=== PATIENT | female | born 1975 | race Caucasian/White ===

== ENCOUNTER 2017-01-04 08:33 | Emergency (ER) | payer BC, OTHER ==
[~2017-01-04] VITALS: Ht 165.1 cm; Wt 81.5 kg
[~2017-01-04 08:33] MED LIST: CIPR500T4 PO; NAPR-688 PO; ONDA4TAB35 PO
[2017-01-04 08:35] VITALS: Ht 165.1 cm; Wt 81.5 kg
[2017-01-04] MEDS ORDERED: FAMOTIDINE 20 MG INJ IV STA (09:11)
[2017-01-04] MEDS ORDERED: LIDOCAINE/MYLANTA 40 ML BTL PO STA (09:11)
[2017-01-04 09:48] LABS: ADD SCAN DIFF NO
[2017-01-04 09:56] LABS: BASOPHILS % 0.5 % (0.0-2.0); EOSINOPHILS # 0.1 10^3/ul (0.0-0.5); EOSINOPHILS % 2.5 % (0.0-7.0); HEMATOCRIT 35.8 % (37.0-47.0); HEMOGLOBIN 12.1 g/dl (12.0-16.0); LYMPHOCYTES # 1.7 10^3/ul (0.8-2.9); LYMPHOCYTES % 30.4 % (15.0-51.0); MEAN CORPUSCULAR HEMOGLOBIN 28.8 pg (29.0-33.0); MEAN CORPUSCULAR HGB CONC 33.8 g/dl (32.0-37.0); MEAN CORPUSCULAR VOLUME 85.2 fl (82.0-101.0); MEAN PLATELET VOLUME 10.5 fl (7.4-10.4); MONOCYTE # 0.5 10^3/ul (0.3-0.9); MONOCYTES % 8.9 % (0.0-11.0); NEUTROPHIL # 3.2 10^3/ul (1.6-7.5); NEUTROPHILS % 57.5 % (39.0-77.0); PLATELET COUNT 321 10^3/UL (140-415); RED CELL DISTRIBUTION WIDTH 12.9 % (11.5-14.5); WHITE BLOOD COUNT 5.6 10^3/ul (4.8-10.8)
--- NOTE | 2017-01-04 09:56 | RADRPT ---
PROCEDURE: CT Abdomen and Pelvis without contrast. CLINICAL INDICATION: Abdominal pain TECHNIQUE: CT scan of the abdomen and pelvis without contrast was performed. The patient was scann ed without intravenous contrast. Coronal and sagittal reformatted images were obtained from the axi al source images. Use of iterative reconstruction technique was employed. Images were reviewed on a high-resolution PACS workstation. images. The calculated radiation dose measures 1012.93 mGy centime ters. The CTDI measures 17.79 mGy. One or more of the following dose reduction techniques were used: - Automated exposure control. - Adjustment of the mA and/or kV according to patient size . - Use of iterative reconstruction technique. Images were reviewed on a high-resolution PACS workstation COMPARISON: Correlation with prior ultrasound from 12/03/2015 FINDINGS: CT abdomen: The lung bases are clear. The heart size is normal, without pericardial thickening or effusion. Th e liver is normal in size and density without focal mass or intrahepatic biliary dilatation. The sp leonardo is normal in size and homogeneous in density. The stomach is partially collapsed, but is gross ly unremarkable. The pancreas as visualized is normal. The gallbladder is surgically absent. The biliary tree is otherwise unremarkable and there is no evidence for biliary dilatation. The adrena l glands are symmetric and normal. The kidneys are symmetrically unremarkable as well. No renal ca lculus or obstructive uropathy or mass lesion is seen. The aorta is of normal caliber. There is no retroperitoneal lymphadenopathy. The joel hepatis reg ion is clear. The bowel and mesentery, as visualized, are equally unremarkable. CT pelvis: The small bowel loops situated within the pelvis are unremarkable. The pelvic organs are normal. T he pelvic sidewalls and inguinal regions are clear. The sigmoid colon and rectum are intact. A nor mal appendix is identified. No mass, lymphadenopathy, or free fluid is seen. No acute inflammation is seen. The surrounding osseous structures are remarkable for degenerative enthesopathy of the spine. No os teolytic or osteoblastic lesion is detected. IMPRESSION: 1. Status post cholecystectomy. 2. No acute inflammatory process identified within the abdomen or pelvis on this noncontrast examin ation. 3. Normal unenhanced appearance of the appendix. 4. No evidence for nephroureterolithiasis. RPTAT: AA .Dilip Worthy MD, MD Date Time Electronically viewed and signed by .Dilip Worthy MD, MD on 01/04/2017 09:56 .d/
[2017-01-04 10:01] LABS: ADD UMIC NO; UR ASCORBIC ACID NEGATIVE (NEGATIVE); UR BACTERIA FEW /HPF (NONE SEEN); UR BILIRUBIN (Dip) NEGATIVE (NEGATIVE); UR BLOOD (Dip) NEGATIVE (NEGATIVE); UR CLARITY SLIGHTLY CLOUDY (CLEAR); UR COLOR YELLOW (YELLOW); UR GLUCOSE (Dip) NEGATIVE (NEGATIVE); UR KETONES (Dip) NEGATIVE (NEGATIVE); UR LEUKOCYTE ESTERASE (Dip) NEGATIVE Leu/ul (NEGATIVE); UR NITRITE (Dip) NEGATIVE (NEGATIVE); UR RBC 0 /HPF (0-5); UR SPECIFIC GRAVITY (Dip) 1.016 (1.003-1.030); UR SQUAMOUS EPITHELIAL CELL FEW /HPF (FEW); UR TOTAL PROTEIN (Dip) NEGATIVE (NEGATIVE); UR UROBILINOGEN (Dip) NEGATIVE (NEGATIVE)
--- NOTE | 2017-01-04 10:08 | ERD ---
ER Documentation Chief Complaint Date/Time DATE: 01/04/17 TIME: 10:03 Chief Complaint abd swelling with intermittent pain x 3 weeks, rectal bleeding once x 1 wee HPI Patient is a 41-year-old female with past medical history of PUD, s/p cholecystectomy who presents to the emergency department with concerns of epigastric and RUQ 3 weeks. Patient does report abdominal distention and bloating. Patient states the pain is usually worse in the evenings. However today the pain was worse this morning which was concerning to her. Patient denies any fevers, chills or vomiting. Patient does report nausea. Patient does admit to history of constipation. She states she did have a bowel movement yesterday however it was hard. Patient states she has often has hard stools. Patient also reports blood in her stools. Patient states she notices blood with wiping on the toilet paper. Patient denies any previous history of hemorrhoids. Patient states she has had an endoscopy in the past however she denies having a colonoscopy. ROS All systems reviewed and are negative except as per history of present illness. Medications Home Meds Active Scripts Ondansetron (Ondansetron Odt) 4 Mg Tab.rapdis, 4 MG PO Q6H Y for NAUSEA AND/OR VOMITING, #10 TAB Prov:NICANOR HAYWOOD PA-C 01/04/17 Famotidine* (Pepcid*) 20 Mg Tablet, 20 MG PO BID for 30 Days, TAB Prov:NICANOR HAYWOOD PA-C 01/04/17 Ondansetron Hcl* (Zofran* ODT) 4 mg -ODT Tab.disper, 4 MG PO Q6 Y for NAUSEA AND /OR VOMITING, #10 TAB Prov:CYDNEY LYNN DO 12/03/15 Naproxen* (Naproxen*) 500 Mg Tablet, 500 MG PO BID, #20 TAB Prov:CYDNEY LYNN DO 12/03/15 Ciprofloxacin Hcl* (Ciprofloxacin Hcl*) 500 Mg Tablet, 500 MG PO BID for 14 Days , TAB Prov:CYDNEY LYNN DO 12/03/15 Allergies Allergies: Coded Allergies: No Known Allergy (Unverified , 01/04/17) PMhx/Soc History of Surgery: Yes (Tummy Tuck, Cholecystectomy, x2) Anesthesia Reaction: No Hx Neurological Disorder: No Hx Respiratory Disorders: No Hx Cardiac Disorders: No Hx Psychiatric Problems: No Hx Miscellaneous Medical Probl: Yes () Hx Alcohol Use: No Hx Substance Use: No Hx Tobacco Use: No Smoking Status: Never smoker Physical Exam Vitals Vital Signs Date Time Temp Pulse Resp B/P Pulse Ox O2 Delivery O2 Flow Rate FiO2 01/04/17 11:09 98.3 64 20 106/62 98 Room Air 01/04/17 08:35 98.4 75 18 104/62 98 Physical Exam GENERAL: Well-developed, well-nourished female. Appears in no acute distress. HEAD: Normocephalic, atraumatic. EYES: Pupils are equally reactive bilaterally. EOMs grossly intact. No conjunctival erythema. ENT: Moist mucous membranes. No uvula deviation. No kissing tonsils. NECK: Supple. No meningismus. Normal range of motion of the neck. LUNG: Clear to auscultation bilaterally. No rhonchi, wheezing, rales or coarse breath sounds. HEART: Regular rate and rhythm. No murmurs, rubs or gallops. ABDOMEN: Soft. Slightly distended. Tender to palpation in the epigastric region. Positive bowel sounds in all four quadrants. No rebound tenderness, no guarding. (-) McBurney's point tenderness. No CVA tenderness. BACK: No midline tenderness. EXTREMITIES: Equal pulses bilaterally. No peripheral clubbing, cyanosis or edema. No unilateral leg swelling. NEUROLOGIC: Alert and oriented. Moving all four extremities without any difficulty. Normal speech. Steady gait. SKIN: Normal color. Warm and dry. No rashes or lesions. Result Diagram: 01/04/1792901/04/17 0930 Results 24 hrs Laboratory Tests Test 01/04/17 09:25 01/04/17 09:30 Urine Color YELLOW Urine Clarity SLIGHTLY CLOUDY Urine pH 7.0 Urine Specific Spring 1.016 Urine Ketones NEGATIVEmg/dL Urine Nitrite NEGATIVEmg/dL Urine Bilirubin NEGATIVEmg/dL Urine Urobilinogen NEGATIVEmg/dL Urine Leukocyte Esterase NEGATIVELeu/ul Urine Microscopic RBC 0/HPF Urine Microscopic WBC 1/HPF Urine Squamous Epithelial Cells FEW/HPF Urine Bacteria FEW/HPF Urine Hemoglobin NEGATIVEmg/dL Urine Glucose NEGATIVEmg/dL Urine Total Protein NEGATIVEmg/dl White Blood Count 5.610^3/ul Red Blood Count 4.2010^6/ul Hemoglobin 12.1g/dl Hematocrit 35.8% Mean Corpuscular Volume 85.2fl Mean Corpuscular Hemoglobin 28.8pg Mean Corpuscular Hemoglobin Concent 33.8g/dl Red Cell Distribution Width 12.9% Platelet Count 02830^3/UL Mean Platelet Volume 10.5fl Neutrophils % 57.5% Lymphocytes % 30.4% Monocytes % 8.9% Eosinophils % 2.5% Basophils % 0.5% Nucleated Red Blood Cells % 0.0/100WBC Neutrophils # 3.210^3/ul Lymphocytes # 1.710^3/ul Monocytes # 0.510^3/ul Eosinophils # 0.110^3/ul Basophils # 0.010^3/ul Nucleated Red Blood Cells # 0.010^3/ul Sodium Level 135mmol/L Potassium Level 4.3mmol/L Chloride Level 107mmol/L Carbon Dioxide Level 21mmol/L Anion Gap 11 Blood Urea Nitrogen 10mg/dl Creatinine 0.72mg/dl Glucose Level 92mg/dl Calcium Level 9.3mg/dl Total Bilirubin 0.3mg/dl Direct Bilirubin 0.00mg/dl Indirect Bilirubin 0.3mg/dl Aspartate Amino Transf (AST/SGOT) 29IU/L Alanine Aminotransferase (ALT/SGPT) 30IU/L Alkaline Phosphatase 67IU/L Troponin I < 0.012ng/ml Total Protein 8.1g/dl Albumin 4.9g/dl Globulin 3.20g/dl Albumin/Globulin Ratio 1.53 Lipase 174U/L Current Medications Medications (Trade) Dose Ordered Sig/Tre Route PRN Reason Start Time Stop Time Status Last Admin Dose Admin Famotidine (Pepcid Iv) 20 mg ONCE STAT IV 01/04/17 09:11 01/04/17 09:14 DC 01/04/17 09:34 Miscellaneous Medication (Gi Cocktail (2)) 40 ml ONCE STAT PO 01/04/17 09:11 01/04/17 09:14 DC 01/04/17 09:34 Procedures/MDM ED COURSE: The patient was stable throughout ED course. I kept the patient and/or family informed of laboratory and diagnostic imaging results throughout the ED course. DIAGNOSTIC IMAGING: Read by radiologist. DIAGNOSTIC IMAGING REPORT Patient: SILVA ARRINGTON : 1975 Age: 41 Sex: F MR #: [id number] [facility] #: [id number] DOS: 01/04/17 0911 Ordering MD: NICANOR HAYWOOD PA-C [facility] Room/Bed: PROCEDURE: CT Abdomen and Pelvis without contrast. CLINICAL INDICATION: Abdominal pain TECHNIQUE: CT scan of the abdomen and pelvis without contrast was performed. The patient was scanned without intravenous contrast. Coronal and sagittal reformatted images were obtained from the axial source images. Use of iterative reconstruction technique was employed. Images were reviewed on a high- resolution PACS workstation. images. The calculated radiation dose measures 1012.93 mGy centimeters. The CTDI measures 17.79 mGy. One or more of the following dose reduction techniques were used: - Automated exposure control. - Adjustment of the mA and/or kV according to patient size . - Use of iterative reconstruction technique. Images were reviewed on a high-resolution PACS workstation COMPARISON: Correlation with prior ultrasound from 12/03/2015 FINDINGS: CT abdomen: The lung bases are clear. The heart size is normal, without pericardial thickening or effusion. The liver is normal in size and density without focal mass or intrahepatic biliary dilatation. The spleen is normal in size and homogeneous in density. The stomach is partially collapsed, but is grossly unremarkable. The pancreas as visualized is normal. The gallbladder is surgically absent. The biliary tree is otherwise unremarkable and there is no evidence for biliary dilatation. The adrenal glands are symmetric and normal. The kidneys are symmetrically unremarkable as well. No renal calculus or obstructive uropathy or mass lesion is seen. The aorta is of normal caliber. There is no retroperitoneal lymphadenopathy. The joel hepatis region is clear. The bowel and mesentery, as visualized, are equally unremarkable. CT pelvis: The small bowel loops situated within the pelvis are unremarkable. The pelvic organs are normal. The pelvic sidewalls and inguinal regions are clear. The sigmoid colon and rectum are intact. A normal appendix is identified. No mass , lymphadenopathy, or free fluid is seen. No acute inflammation is seen. The surrounding osseous structures are remarkable for degenerative enthesopathy of the spine. No osteolytic or osteoblastic lesion is detected. IMPRESSION: 1. Status post cholecystectomy. 2. No acute inflammatory process identified within the abdomen or pelvis on this noncontrast examination. 3. Normal unenhanced appearance of the appendix. 4. No evidence for nephroureterolithiasis. RPTAT: AA .Dilip Worthy MD, MD Date Time Electronically viewed and signed by .Dilip Worthy MD, MD on 01/04/2017 09:56 .d/ CC: NICANOR HAYWOOD PA-C PROCEDURES: None. MEDICATIONS GIVEN: GI cocktail, Pepcid IV Patient tolerated medication well with no adverse reactions. Patient reported improvement in pain. MEDICAL DECISION MAKING: This is a 41-year-old female who presents to the ED with epigastric pain and abdominal bloating. Vital signs were reviewed. Patient is afebrile. CBC showed no evidence of systemic infection or severe anemia. CMP showed no evidence of electrolyte abnormalities, severe acidosis, alkalosis, renal failure , or liver disease. Lipase showed no evidence of acute pancreatitis. Troponin was negative. UA showed no evidence of acute infection or hematuria. Low suspicion for UTI, pyelonephritis or nephrolithiasis. CT abdomen and pelvis without IV contrast showed no acute inflammatory processes within the abdomen or pelvis, no unenhanced appearance of the appendix, no evidence of nephroureterolithiasis. Patient was unable to provide a stool study to test for occult blood. At this time unable to rule out rectal bleeding source. Patient was given a GI cocktail and Pepcid IV here in the ED. She did report significant improvement in her symptoms. At this time, patient's presentation is most consistent with gastritis. Unable to rule out PUD vs. H pylori at this time. Low suspicion for acute coronary syndrome, lower lobe pneumonia, DKA, bowel perforation, , cholecystitis, choledocholithiasis, ascending cholangitis, hepatic abscess, pancreatitis, splenic rupture, diverticulitis, UTI, pyelonephritis, nephrolithiasis, appendicitis, . PRESCRIPTIONS: Pepcid DISCHARGE: At this time, patient is stable for discharge and outpatient management. Patient was given a copy of all imaging and blood work obtained today. Patient was advised to follow-up with a GI specialist for further workup and management of her symptoms including endoscopy, colonoscopy and H. pylori testing. I have instructed the patient to follow-up with his/her primary care physician in 1-2 days. I have instructed the patient to promptly return to the ER at any time for any new or worsening symptoms including increased pain, nausea, vomiting, diarrhea, fever, weakness or LOC. The patient and/or family expressed understanding of and agreement with this plan. All questions were answered. Home care instructions were provided. Departure Diagnosis: Primary Impression: Epigastric pain Condition: Stable Patient Instructions: Epigastric Pain (Uncertain Cause) Referrals: FABIO PHAM MD, RAHUL K. CHITAYAT, RON DESAI, SALEEM A MD GUL[place],DEISI [place],JING GARAY Additional Instructions: Call your primary care doctor TOMORROW for an appointment during the next 1-2 days.See the doctor sooner or return here if your condition worsens before your appointment time. Follow-up with GI specialist for further management of her symptoms. See referral list. Avoid alcohol, fatty foods, fried foods, acidic foods. Speak to her physician about ordering H pylori testing, endoscopy and colonoscopy. Unable to rule out PUD vs H. pylori at this time per NICANOR HAYWOOD PA-C Jan 04, 2017 10:08
[2017-01-04 10:11] LABS: ALANINE AMINOTRANSFERASE 30 IU/L (13-69); ALKALINE PHOSPHATASE 67 IU/L (42-121); ANION GAP 11 (8-16); ASPARTATE AMINO TRANSFERASE 29 IU/L (15-46); BILIRUBIN,INDIRECT 0.3 mg/dl (0-1.1); BILIRUBIN,TOTAL 0.3 mg/dl (0.2-1.3); BLOOD UREA NITROGEN 10 mg/dl (7-20); CALCIUM 9.3 mg/dl (8.4-10.2); CARBON DIOXIDE 21 mmol/L (21-31); CHLORIDE 107 mmol/L (97-110); CREATININE 0.72 mg/dl (0.44-1.00); GLUCOSE 92 mg/dl (70-220); POTASSIUM 4.3 mmol/L (3.5-5.1); SODIUM 135 mmol/L (135-144)
[2017-01-04 10:12] LABS: ALBUMIN 4.9 g/dl (3.3-4.9); ALBUMIN/GLOBULIN RATIO 1.53; TOTAL PROTEIN 8.1 g/dl (6.1-8.1)
[2017-01-04 10:25] LABS: TROPONIN-I < 0.012 ng/ml (0.00-0.12)
[2017-01-04] MEDS ORDERED: FAMO-96 PO (10:54)
[2017-01-04] MEDS ORDERED: ONDA4TAB14 PO (10:55)
[2017-01-04 11:09] VITALS: BP 106/62; PULSE 64; RESP 20; TEMP 98.3
== END 2017-01-04 11:10 | disposition home or self-care (01) ==
LOC: FTE 08:33
DX: R10.13 Epigastric pain (principal); R11.0 Nausea
CPT/HCPCS: 36415; 74176; 80053; 81001; 81003; 83690; 84484; 85025; 96374

== ENCOUNTER 2019-01-13 15:57 | Emergency (ER) | payer BC, OTHER ==
[~2019-01-13] VITALS: Ht 160 cm; Wt 77.2 kg
[~2019-01-13 15:57] MED LIST changes: +FAMO-96 PO; +ONDA4TAB14 PO
[2019-01-13 16:00] VITALS: BP 125/78; PULSE 82; RESP 18; Ht 160 cm; Wt 77.2 kg
[2019-01-13] MEDS ORDERED: AZIT500T3 PO (16:05)
[2019-01-13] MEDS ORDERED: IBUP-1542 PO (16:05)
[2019-01-13] MEDS ORDERED: BISM262O23 PO (16:05)
--- NOTE | 2019-01-13 16:09 | ERD ---
ER Documentation Chief Complaint Chief Complaint diarrhea x 4 days HPI 43-year-old female presents with diarrhea for last 4 days which is watery. She had vomiting initially which resolved. She denies fevers. She has intermittent crampy epigastric pain. She did recently returned from [place]. She has a history of cholecystectomy. Last menstrual period was last week. ROS All systems reviewed and are negative except as per history of present illness. Medications Home Meds Active Scripts Ibuprofen* (Motrin*) 600 Mg Tab, 600 MG PO Q6, #15 TAB Prov:ELIZABETH MONTEZ MD 01/13/19 Bismuth Subsalicylate* (Pepto-Bismol*) 262 Mg/15 Ml Oral.susp, 30 ML PO QID for 5 Days, ML Prov:ELIZABETH MONTEZ MD 01/13/19 Azithromycin* (Zithromax*) 500 Mg Tablet, 500 MG PO DAILY for 3 Days, TAB Prov:ELIZABETH MONTEZ MD 01/13/19 Ondansetron (Ondansetron Odt) 4 Mg Tab.rapdis, 4 MG PO Q6H PRN for NAUSEA AND/OR VOMITING, #10 TAB Prov:NICANOR HAYWOOD PA-C 01/04/17 Famotidine* (Pepcid*) 20 Mg Tablet, 20 MG PO BID for 30 Days, TAB Prov:NICANOR HAYWOOD PA-C 01/04/17 Ondansetron Hcl* (Zofran* ODT) 4 mg -ODT Tab.disper, 4 MG PO Q6 PRN for NAUSEA AND/OR VOMITING, #10 TAB Prov:CYDNEY LYNN DO 12/03/15 Naproxen* (Naproxen*) 500 Mg Tablet, 500 MG PO BID, #20 TAB Prov:CYDNEY LYNN DO 12/03/15 Ciprofloxacin Hcl* (Ciprofloxacin Hcl*) 500 Mg Tablet, 500 MG PO BID for 14 Days, TAB Prov:CYDNEY LYNN DO 12/03/15 Allergies Allergies: Coded Allergies: No Known Allergy (Unverified , 01/04/17) PMhx/Soc History of Surgery: Yes (Tummy Tuck, Cholecystectomy, x2) Anesthesia Reaction: No Hx Neurological Disorder: No Hx Respiratory Disorders: No Hx Cardiac Disorders: No Hx Psychiatric Problems: No Hx Miscellaneous Medical Probl: Yes () Hx Alcohol Use: No Hx Substance Use: No Hx Tobacco Use: No Smoking Status: Never smoker FmHx Family History: No diabetes, No coronary disease, No other Physical Exam Vitals Vital Signs Date Temp Pulse Resp B/P (MAP) Pulse Ox O2 O2 Flow FiO2 Time Delivery Rate 01/13/19 97.3 82 18 125/78 99 16:00 (94) Physical Exam Const: No acute distress Head: Atraumatic Eyes: Normal Conjunctiva ENT: Normal External Ears, Nose and Mouth. Neck: Full range of motion. No meningismus. Resp: Clear to auscultation bilaterally Cardio: Regular rate and rhythm, no murmurs Abd: Soft, non tender, non distended. Normal bowel sounds Skin: No petechiae or rashes Back: No midline or flank tenderness Ext: No cyanosis, or edema Neur: Awake and alert Psych: Normal Mood and Affect Procedures/MDM Well-appearing patient presents with diarrhea for last 4 days. She has vomiting which resolved. She has no signs of significant abdominal pain or tenderness. She is well-appearing. She likely has traveler's diarrhea or self-limited illness but given foreign travel we will treat with Zithromax, Pepto-Bismol, ibuprofen, return precautions for worsening pain, vomiting, fevers, blood, new worsening symptoms with primary care doctor. Departure Diagnosis: Primary Impression: Diarrhea Diarrhea type: unspecified type Qualified Codes: R19.7 - Diarrhea, unspecified Condition: Stable Patient Instructions: Self-Care for Vomiting and Diarrhea, Traveler's Diarrhea (6Y-Adult) Referrals: DAVE LINDSEY MD (PCP) Additional Instructions: We will treat for infection although may be self-limited traveler's diarrhea. Drink plenty fluids at home. Recheck for fevers, blood, worsening abdominal pain, new or worsening symptoms. ELIZABETH MONTEZ MD Jan 13, 2019 16:09
== END 2019-01-13 16:10 | disposition home or self-care (01) ==
LOC: FTE 15:57 → E/R 16:10
DX: R19.7 Diarrhea, unspecified (principal)
CPT/HCPCS: 99283